=== PATIENT | male | born 1990 | race Hispanic/Latino ===

== ENCOUNTER → 2018-03-24 | Outpatient (CLI) | payer OTHER ==
--- NOTE | 2018-03-24 11:49 | Diagnostic Imaging Report ---
PROCEDURE:CHEST 2 VIEWS TECHNIQUE:PA and lateral chest INDICATION:Chest pain; smoker COMPARISON:None. FINDINGS: Lungs are clear and symmetrically inflated. No pleural effusions. Normal heart size and mediastinal contour. Intact skeleton. CONCLUSION: No acute abnormality. Dictated by: Juan Ramon Wilkerson M.D. on 03/24/2018 at 11:50 Electronically approved by: Juan Ramon Wilkerson M.D. on 03/24/2018 at 11:50
== END ==
LOC: RAD 10:14
PROVIDERS: ATTEND Family Medicine
DX: R07.9 Chest pain, unspecified (principal); F17.210 Nicotine dependence, cigarettes, uncomplicated
CPT/HCPCS: 71046